=== PATIENT | male | born 2000 | race Caucasian/White ===

== ENCOUNTER 2020-02-04 16:37 | Emergency (ER) | payer MEDICAID ==
[~2020-02-04] VITALS: Ht 182.9 cm; Wt 180.0 kg
[2020-02-04 16:43] VITALS: BP 123/84
== END 2020-02-04 19:49 | disposition home or self-care (01) ==
LOC: ER 16:38
DX: M54.89 Other dorsalgia (principal); V87.7XXA Person injured in collision between other specified motor vehicles (traffic), initial encounter; Y93.89 Activity, other specified; Y92.89 Other specified places as the place of occurrence of the external cause; Y99.8 Other external cause status
CPT/HCPCS: 70450; 72125; 99285